=== PATIENT | male | born 1955 | race Caucasian/White ===

== ENCOUNTER 2024-09-24 11:25 | Emergency (ER) | payer MEDICARE, BC, SELFPAY ==
[2024-09-24 11:37] VITALS: BP 95/62
[2024-09-24 11:39] VITALS: BP 114/76
[2024-09-24 11:56] LABS: % Basophils 0.2 % (0-2); % Eosinophils 2.5 % (0-6); % Immature Granulocytes 0.2 % (0-0.5); % Lymphocytes 26.6 % (20.5-51.1); % Monocytes 11.4 % (1.7-9.3); % Neutrophils 59.1 % (42.2-75.2); Absolute Eosinophils 0.1 10^3/uL (0-0.7); Absolute Lymphocytes 1.1 10^3/uL (1.2-3.4); Absolute Monocytes 0.5 10^3/uL (0.1-0.6); Absolute Neutrophils 2.4 10^3/uL (1.4-6.5); Hematocrit 43.8 % (39.0-52.0); Hemoglobin 15.8 g/dL (13.0-18.0); Mean Corp Hgb Conc. 36.1 g/dL (33.0-37.0); Mean Corpuscular Hgb 32.4 pg (27.0-31.0); Mean Corpuscular Volume 89.8 fL (80.0-94.0); Mean Platelet Volume 9.3 fL (7.4-10.4); Nucleated Red Blood Cells % 0 % (-); Platelet Count 145 10^3/uL (130-400); Red Blood Cell Count 4.88 10^6/uL (4.70-6.10)
[2024-09-24 12:16] LABS: ALT (SGPT) 19 U/L (0-50); AST (SGOT) 30 U/L (17-59); Albumin 4.2 g/dl (3.5-5.0); Alkaline Phosphatase 68 U/L (38-126); Blood Urea Nitrogen 29 mg/dl (9-20); Calcium 9.4 mg/dl (8.4-10.2); Carbon Dioxide 23 mmol/L (22-30); Chloride 101 mmol/L (98-107); Glucose 126 mg/dl (70-99); Potassium 4.6 mmol/L (3.5-5.1); Sodium 135 mmol/L (135-145); Total Bilirubin 1.1 mg/dl (0.2-1.3); Total Protein 7.2 g/dl (6.3-8.2); eGFR > 60.00
--- NOTE | 2024-09-24 14:26 | ED.GENMED ---
History of Present Illness
General
Chief Complaint: Cold/Flu/URI Symptoms
Source: patient
Exam Limitations: none
Time Seen by Provider: 09/24/24 14:26
Nursing documentation reviewed up to this point in time: agreed with
History of Present Illness
History of Present Illness:
Patient is a 69-year-old male who presents to the ER complaining of bodyaches chills weakness. He tested positive for flu A on Monday but continues to feel the same. Patient started with symptoms over 5 days ago. He denies any shortness of
breath. He complains of soreness all over. Does have a cough and complaint of soreness when he coughs. Patient reports he has not had the energy to eat or drink a lot
Review of Systems
Review of Systems
Allergies reviewed?: Yes
All Other Systems: ROS reviewed and negative except as documented in HPI and ROS
Constitutional: Reports fatigue and chills
Respiratory: Reports cough; Denies trouble breathing
Cardiac: Reports no symptoms
ABD/GI: Reports no symptoms
: Reports no symptoms
Musculoskeletal: Reports no symptoms
Skin: Reports no symptoms
Neurological: Reports no symptoms
Psychiatric: Reports no symptoms
Phy Exam
General Physical Exam
General Presentation: no apparent distress
General age: appears stated age
General Skin: warm and dry
General Habitus: normal
General Mental: alert
General Hydration: dry mucous membranes
Cardiovascular Exam
Cardiovascular Exam: regular rate/rhythm, no murmur and normal peripheral pulses
Neurological Exam
Neurological Exam: alert and oriented x3
Musculoskeletal Exam
Musculoskeletal Exam: full ROM
Skin Exam
Skin Exam: normal color and warm/dry
Psychiatric Exam
Psychiatric Exam: normal mood/affect
Course
Orders/Labs/Results
Orders:
Orders
09/24/24 11:40
EKG [Electrocardiogram (*1)] Urgent
Reason for Study: Chest Pain
CXR2 [CR Chest - 2 Views ] Urgent
Comment:
Reason For Exam: sob
09/24/24 11:41
EKG- Treatment ONCE
09/24/24 11:46
CBC/With Diff [Complete Blood Count/With Diff] Urgent
Comprehensive Metabolic Panel Urgent
09/24/24 14:36
0.9% Sodium Chloride 1000 ml [Nss] 1,000 ml IV BOLUS
Ketorolac [Toradol] 15 mg IV NOW STA
09/24/24 16:31
Vital Signs- Treatment ONCE
Frequency: Once
Abnormal Lab Results
09/24/24
11:46
WBC 4.0 L 10^3/uL
(4.8-10.8)
MCH 32.4 H pg
(27.0-31.0)
Absolute Lymphs (auto) 1.1 L 10^3/uL
(1.2-3.4)
Monocytes % 11.4 H %
(1.7-9.3)
BUN 29 H mg/dl
(9-20)
Glucose 126 H mg/dl
(70-99)
09/24/24 11:46
09/24/24 11:46
Vital Signs
Initial and Last Documented VS:
Initial Vital Signs
Temp Pulse Resp BP Pulse Ox
98.5 F 77 16 95/62 98
09/24/24 11:37 09/24/24 11:37 09/24/24 11:37 09/24/24 11:37 09/24/24 11:37
Last Documented Vital Signs
Temp Pulse Resp BP Pulse Ox
98.8 F 57 18 100/57 97
09/24/24 15:27 09/24/24 16:37 09/24/24 16:37 09/24/24 16:37 09/24/24 16:37
MDM/Problems Addressed
Differential Diagnosis Includes:
Not limited influenza dehydration pneumonia
MDM/Problems Addressed:
Symptoms are consistent with influenza A. Patient tested positive at home. He is in no acute distress he is mildly dehydrated and was given fluids and Toradol here .he is not on toxic appearing lungs are clear no pneumonia on x-ray normal white
count. Discussed with patient to stay well-hydrated. Tessalon for home. Symptoms have occurred for about past 5 days so will DC with supportive care.
*Pulse Oximetry
Patient hypoxic: no
*Critical Care Note
Total Time (30-74mins, 75-104mins- exclusive of procedures): Not Applicable
ED Attending Note
-
Portions of this chart may have been created with voice recognition software.� Occasional wrong word or��sound alike� substitutions may have occurred due to the inherent limitations of voice recognition software.
Discharge Plan
Departure
Patient Disposition: Home (Routine Discharge)
Date of Disposition: 09/24/24
Time of Disposition: 16:29
Patient with high blood pressure during this ER visit?: No
Condition: Fair
Covid-19: Not Applicable
Discharge Problem:
Influenza
Instructions: Flu in adults - Discharge instructions
Prescriptions:
No Action
sildenafil [Viagra] 25 mg Tablet
100 mg PO DAILY PRN (Reason: sexual intercourse)
Bryhali 0.01 % Lotion
1 applic TOPICAL DAILY PRN (Reason: psoriasis irritation)
mirtazapine
15 mg PO DAILY
tadalafil 5 mg Tablet
5 mg PO DAILY
oxycodone 5 mg tablet
5 mg PO Q4HPRN PRN (Reason: breakthrough/severe pain) Qty: 15 0RF
prednisone 50 mg tablet
50 mg PO DAILY Qty: 5 0RF
doxycycline monohydrate 100 mg tablet
100 mg PO BID Qty: 14 0RF
lidocaine [Lidoderm] 5 % adhesive patch,medicated
1 patch topical DAILY Qty: 15 0RF
Activity Restrictions/Additional Instructions:
Be Sure to stay well-hydrated.
You may take Tylenol if needed. Follow-up with your family doctor in the next of days.
return if any worsening of symptoms
Interventions
Interventions:
*Risk Screen - Suicide Last Done: 09/24/24 11:37
*General Assessment Last Done: 09/24/24 14:42
*Neglect/Abuse Screening Last Done: 09/24/24 11:37
*ED- Fall Risk Assessment Last Done: 09/24/24 14:42
*ED COVID-19 Vaccine History Last Done: 09/24/24 14:42
*Nursing Disposition Last Done: 09/24/24 16:46
Discharge Date and Time
Discharge Date/Time: 09/24/24 16:47
Print Language: BULGARIAN
[2024-09-24] MEDS: TORADOL 15 MG IV (14:51)
[2024-09-24] MEDS: NSS 1000 IV (14:52)
[2024-09-24 15:26] VITALS: BMI 25.0
[2024-09-24 15:27] VITALS: BP 95/65
[2024-09-24 16:37] VITALS: BP 100/57
== END 2024-09-24 16:47 | disposition home or self-care (01) ==
LOC: EMR 11:25
PROVIDERS: Emergency Medicine; EMERGENCY PHYSICIAN Emergency Medicine
DX: J10.1 Influenza due to other identified influenza virus with other respiratory manifestations (principal); E86.0 Dehydration
CPT/HCPCS: 99285; 96374; 96361; 71046; 80053; 85025; 93005